=== PATIENT | male | born 1935 ===

== ENCOUNTER 2019-06-30 05:50 | Day surgery (SDC) | payer OTHER ==
[~2019-06-30 05:50] MED LIST: ASPIR 8181 MG PO; CYMBALTA30 MG PO; DOLOGESIC 500-1 EACH PO; FINASTERIDE5 MG PO; GABAPEN PO; GLIPIZIDE ER10 MG PO; LANTUS SOL100 UNIT/1; LASIX20 MG PO; NASAL MIST126 ML; NEPHRONEX-SL T1 EACH PO; TAMS0.4C PO; TOPROL XL25 M1 PO; ZANAFLEX2 M1 PO; ZOCOR40 MG PO; [UNRECOGNIZED DRUG - OTHER] PO
== END 2019-06-30 11:55 | disposition home or self-care (01) ==
LOC: CIR.AMB 05:50 → ADM 08:15 → CIR.AMB 09:15
DX: M47.817 Spondylosis without myelopathy or radiculopathy, lumbosacral region (principal); M51.36 Other intervertebral disc degeneration, lumbar region